=== PATIENT | female | born 1990 | race Caucasian/White ===

== ENCOUNTER → 2016-09-10 | Outpatient (CLI) | payer MEDICAID ==
[~2016-09-10] MED LIST: DCS100C PO; DOCU100C37 PO; DOXY100C2 PO; FERR-74 PO; FRS325T PO; HYDR-3714 PO; HYDR-3812 PO; IBP600T1 PO; IBP800T PO; IBUP-15; IBUP-1773 PO; LEVO50TA PO; LEVO75TA PO; METH4TAB PO; NAPR-243 PO; NF-NOR777T PO; PREN-98 PO; PRM25T PO; PROP1TAB77; TRAM50TA2 PO; TRM50T PO
--- OUTSIDE RECORDS SUMMARY | 2016-09-10 11:33 | XMS REPORT | Continuity of Care Document ---
Author Author [facility] Organization [facility] Address Unknown Phone Unavailable Care Team Providers Care Resin Shaver Name Role Phone PCP Unavailable Source Comments Some departments are not documenting in the electronic medical record. If you do not see the information that you expected, contact Release of Information in the Health Information Management department at [phone] for further assistance in locating additional records.[facility] Active Allergies and Adverse Reactions Allergen Noted Date Severity Reactions Comments Darvon 07/18/2016 Low UNKNOWN Guaifenesin 07/18/2016 Low UNKNOWN Guaifenesin with codeine Sulfamethoxazole-Trimetho 07/18/2016 Low UNKNOWN prim Current Medications Prescription Sig. Disp. Refills Start End Date Status Date levonorgestrel (MIRENA) 1 Intra Uterine Device by Active 20 mcg/24 hr (5 years) Intrauterine route once. intrauterine device fluconazole (DIFLUCAN) 50 Take 50 mg by mouth Active mg tablet daily. Active Problems Not on file Most Recent Encounters Date Type Specialty Providers Description 07/18/2016 Abstract Endocrinology Marleni Moise MD Social History Tobacco Use Types Packs/Day Years Used Date Never Smoker Smokeless Tobacco: Never Used Plan of Care Health Maintenance Due Date Last Done Comments Physical (Comprehensive) 1998 Exam Hpv Vaccines (#1) 2002 Pertussis Vaccine 2002 Tetanus Vaccine 2008 Cervical Cancer Screening 2012 Influenza Vaccine 03/14/2016 Results from Last 3 Months Not on file
--- NOTE | 2016-09-10 18:15 | Diagnostic Imaging Report ---
INDICATION: History of a low-lying placenta. FINDINGS: A egan gestation is in breech position. Cervix is nondilated at 5.6 cm. The placenta is well separable from the closed internal os at least 10 cm. IMPRESSION: No evidence of previa. Nondilated 5.6 cm in length cervix revealed at limited obstetrical ultrasound. Dictated by: Dictated on workstation # [id number]
== END ==
LOC: RAD 11:26
PROVIDERS: ATTEND Obstetrics & Gynecology
DX: O43.893 Other placental disorders, third trimester (principal)
CPT/HCPCS: 76817

== ENCOUNTER 2016-10-30 18:49 | Inpatient (IN) | payer MEDICAID ==
[2016-10-30] VITALS (18 sets, daily range): BP systolic 113–138; BP diastolic 60–75
[~2016-10-30] VITALS: Ht 167.6 cm; Wt 144.2 kg
[~2016-10-30 18:49] MED LIST changes: -DOCU100C37 PO; -FERR-74 PO; -HYDR-3812 PO; -IBUP-1773 PO; -LEVO50TA PO
[2016-10-30] MEDS ORDERED: CLINDAMYCIN 900 MG/6ML (CLEOCIN) VIAL ONE (20:06)
[2016-10-30] MEDS ORDERED: NS (IVPB) 50 ML ONE (20:29)
[2016-10-30] MEDS: D5 LR IV SOLUTION 1,000 ML IV SCH (20:34)
[2016-10-30 20:39] LABS: BASOPHILS % (AUTO) 0 % (0-10); EOSINOPHILS # (AUTO) 0.1 10^3/uL (0.0-0.3); EOSINOPHILS % (AUTO) 1 % (0-10); LYMPHOCYTES # (AUTO) 1.8 X 10^3 (1.0-4.0); LYMPHOCYTES % (AUTO) 16 % (12-44); MEAN CORPUSCULAR HEMOGLOBIN 25 PG (25-34); MEAN CORPUSCULAR HGB CONC 32 G/DL (32-36); MEAN CORPUSCULAR VOLUME 76 FL (80-99); MEAN PLATELET VOLUME 11.8 FL (7.4-10.4); MONOCYTES # (AUTO) 0.9 X 10^3 (0.0-1.0); MONOCYTES % (AUTO) 8 % (0-12); NEUTROPHILS # (AUTO) 8.7 X 10^3 (1.8-7.8); NEUTROPHILS % (AUTO) 76 % (42-75); PLATELET COUNT 211 10^3/uL (130-400); RED BLOOD COUNT 5.22 10^6/uL (4.35-5.85); RED CELL DISTRIBUTION WIDTH 16.9 % (10.0-14.5); WHITE BLOOD COUNT 11.5 10^3/uL (4.3-11.0)
[2016-10-30] MEDS ORDERED: SUFENTA 0.6MCG/ML BUPIVA 0.125 100 ML ONE (21:14)
[2016-10-30] MEDS ORDERED: BUPIVACAINE 0.25% 30 ML (SENSORCAINE) VIAL ONE (21:50)
[2016-10-30] MEDS ORDERED: LIDOCAINE PF 2% 10 ML (XYLOCAINE) AMP ONE (21:50)
[2016-10-30] MEDS ORDERED: fentaNYL INJECTION 100 MCG/2 ML AMP ONE (21:51)
[2016-10-30] MEDS ORDERED: LACTATED RINGERS 1,000 ML IV SCH (22:02)
[2016-10-30] MEDS ORDERED: NALOXONE 0.4 MG/ML 1 ML (NARCAN) VIAL IV PRN (22:15)
[2016-10-30] MEDS ORDERED: ONDANSETRON 4 MG/2 ML (SDV) Z0FRAN IV PRN (22:15)
[2016-10-30] MEDS ORDERED: diphenhydrAMINE 50 MG/ML INJ (BENADRYL) IV PRN (22:15)
[2016-10-30] MEDS: CATHETER FLUSH 10 ML SYR IV SCH (22:26)
[2016-10-30] MEDS: EPIDURAL (SUFENTA 0.6MCG/ML BUPIVA 0.125%) 100 ML BAG EPI PRN (22:27)
[2016-10-30] MEDS ORDERED: LEVO50TA PO (22:38)
[2016-10-31] VITALS (62 sets, daily range): BP systolic 101–146; BP diastolic 55–85
[2016-10-31] MEDS: D5 LR IV SOLUTION 1,000 ML IV SCH ×2 (03:27→11:59)
[2016-10-31] MEDS: CLINDAMYCIN INJECTION 900 MG in NS (IVPB) 50 ML IV SCH ×2 (04:31→11:58)
[2016-10-31] MEDS: EPIDURAL (SUFENTA 0.6MCG/ML BUPIVA 0.125%) 100 ML BAG EPI PRN (05:36)
[2016-10-31] MEDS: CATHETER FLUSH 10 ML SYR IV SCH (05:57)
--- NOTE | 2016-10-31 10:08 | History & Physical-OB ---
OB - Chief Complaint & HPI Date Date of Admission: Date of Admission: Oct 30, 2016 at 7:58 pm Chief Complaint/History OB-Reason for Admission/Chief: Onset of Labor Hx : 3 Hx Para: 2 Expected Date of Delivery: Nov 05, 2016 Gestational Age in Weeks: 39 Gestational Age in Days: 2 Admission Nurse Assessment Rev: Yes History of Labs A pos Antibody neg RI RPR NR HBsAg NR HIV NR GC neg GBS + Allergies and Home Medications Allergies Coded Allergies: Penicillins (Verified Allergy, Mild, 10/30/16) Sulfa (Sulfonamide Antibiotics) (Verified Allergy, Mild, 10/30/16) codeine (Verified Allergy, Mild, 10/30/16) shellfish derived (Verified Allergy, Unknown, 10/31/16) Uncoded Allergies: DARVOCET (Allergy, Mild, HIVES, 03/22/10) Home Medications Levothyroxine Sodium 50 Mcg Tablet, 50 MCG PO DAILY, (Reported) Vit37/Iron/Folic Acid 1 Each Tab.chew, 1 EACH PO DAILY, (Reported) OB - History Hx of Present Care: Yes Ultrasounds: Abnormal US findings (placenta previa which resolved) Obstetrical Complications: None Medical Complications: Other (BMI >45) Obstetrical History Hx Termination: No Hx Multiple Gestation: No Hx Stillbirth: No Hx Complication: No Hx Induced Hypertens: No Hx Maternal Gestational Diabet: No Delivery History Hx Dystocia: No Hx Large For Gestational Age I: No Hx Small for Gestational Age I: No Hx Section: No Hx Vaginal Delivery Post C-Sec: No Hx Blood Disorders: No Adverse Rxn to Tranfusion: No Patient Past Medical History Morbid Obesity Social History/Family History HIV/AIDS: No Recent Infectious Disease Expo: No Sexually Transmitted Disease: No Alcohol Use: Denies Use Recreational Drug Use: No Immunizations Tetanus Booster (TDap): Unknown OB - Admission Exam Physical Exam Vitals: Vital Signs 10/31/16 10/31/16 08:05 09:35 Temp 95.6 Pulse 85 Resp 18 B/P (MAP) 118/80 Pulse Ox 96 O2 Delivery Room Air HEENT: NCAT Heart: Rhythm Normal Lungs: Clear Abdomen: Gravid Extremities: Normal Reflexes: Normal Cervical Dilatation: 4cm Effacement: 75% Station: -1 Membranes: Intact Heart Rate: 130's Accelerations: Accelerations Present Decelerations: No Decelerations Short Term Variability: Present Nursing Home Variability: Absent (0-2) Contractions on Admission: 6-10 Minutes Apart Intensity: Moderate Labs Laboratory Tests Test 10/30/16 20:15 Range/Units White Blood Count 11.5 H 4.3-11.0 10^3/uL Red Blood Count 5.22 4.35-5.85 10^6/uL Hemoglobin 12.8 11.5-16.0 G/DL Hematocrit 40 35-52 % Mean Corpuscular Volume 76 L 80-99 FL Mean Corpuscular Hemoglobin 25 25-34 PG Mean Corpuscular Hemoglobin Concent 32 32-36 G/DL Red Cell Distribution Width 16.9 H 10.0-14.5 % Platelet Count 211 130-400 10^3/uL Mean Platelet Volume 11.8 H 7.4-10.4 FL Neutrophils (%) (Auto) 76 H 42-75 % Lymphocytes (%) (Auto) 16 12-44 % Monocytes (%) (Auto) 8 0-12 % Eosinophils (%) (Auto) 1 0-10 % Basophils (%) (Auto) 0 0-10 % Neutrophils # (Auto) 8.7 H 1.8-7.8 X 10^3 Lymphocytes # (Auto) 1.8 1.0-4.0 X 10^3 Monocytes # (Auto) 0.9 0.0-1.0 X 10^3 Eosinophils # (Auto) 0.1 0.0-0.3 10^3/uL Basophils # (Auto) 0.0 0.0-0.1 10^3/uL OB - Assessment/Plan/Diagnosis Assessment Assessment: active labor, group B positive strep Plan Plan: Expectant Management Discharge Diagnosis Diagnosis: 26 yo G3 P 2 @ 39.2 Active labor GBS + Obesity CATHY NICOLAS DO Oct 31, 2016 10:08 am
[2016-10-31] MEDS ORDERED: LIDOCAINE/EPI 1%-1:200,000 (XYLOCAINE) 30 ML VIAL ONE (12:53)
[2016-10-31] MEDS ORDERED: OXYTOCIN/NORMAL SALINE 500 ML IV ONE (12:53)
[2016-10-31] MEDS: OXYTOCIN/NORMAL SALINE 500 ML IV SCH ×2 (13:06→14:03)
--- NOTE | 2016-10-31 13:25 | OB Labor & Delivery Record ---
L&D History Date of Service Date of Service: Oct 31, 2016 History Expected Date of Delivery: Nov 05, 2016 Gestational Age in Weeks: 39 Hx : 3 Hx Para: 2 Complications Events: Routine care Operative Indications (Cesarea: N/A-Vaginal Delivery Intrapartal Events: None L&D Stage1 Stage One Onset of Labor - Date: Oct 31, 2016 Monitors and Tracing Monitor Mode: External Heart Rate: 125 Station: -1 Retirement Variability: Average (6-10) Short Term Variability: Present Presentation: Vertex Vital Signs VS - Last 72 Hours, by Label 10/30/16 10/30/16 10/30/16 10/30/16 19:20 21:30 21:50 22:07 Temp 97.6 Pulse 98 93 101 95 Resp 18 18 18 18 B/P (MAP) 122/67 119/69 133/74 136/71 Pulse Ox 99 98 O2 Delivery Room Air Room Air Room Air Room Air 10/30/16 10/30/16 10/30/16 10/30/16 22:10 22:13 22:15 22:20 Temp 97.8 Pulse 97 93 99 95 Resp 18 18 18 18 B/P (MAP) 138/71 125/66 128/75 120/63 Pulse Ox 97 96 97 98 O2 Delivery Room Air Room Air Room Air Room Air 10/30/16 10/30/16 10/30/16 10/30/16 22:23 22:26 22:30 22:38 Pulse 90 91 94 101 Resp 18 18 18 18 B/P (MAP) 113/65 115/67 117/71 124/60 Pulse Ox 94 98 97 98 O2 Delivery Room Air Room Air Room Air Room Air 10/30/16 10/30/16 10/30/16 10/30/16 22:41 22:46 23:05 23:20 Pulse 86 102 99 96 Resp 18 18 18 18 B/P (MAP) 131/69 124/65 115/68 117/68 Pulse Ox 97 98 97 97 O2 Delivery Room Air Room Air Room Air Room Air 10/30/16 10/30/16 10/31/16 10/31/16 23:35 23:50 00:05 00:20 Pulse 94 96 86 86 Resp 18 18 18 18 B/P (MAP) 117/66 121/67 126/70 126/71 Pulse Ox 97 97 96 97 O2 Delivery Room Air Room Air Room Air Room Air 10/31/16 10/31/16 10/31/16 10/31/16 00:35 00:50 01:05 01:20 Temp 97.4 Pulse 84 82 82 85 Resp 18 18 18 18 B/P (MAP) 124/69 119/66 115/72 101/56 Pulse Ox 97 94 98 99 O2 Delivery Room Air Room Air Room Air Room Air 10/31/16 10/31/16 10/31/16 10/31/16 01:35 01:50 02:05 02:20 Pulse 84 102 83 82 Resp 18 18 18 18 B/P (MAP) 104/55 127/59 107/55 111/55 Pulse Ox 94 97 98 92 O2 Delivery Room Air Room Air Room Air Room Air 10/31/16 10/31/16 10/31/16 10/31/16 02:35 02:50 03:05 03:20 Temp 96.6 Pulse 82 84 115 97 Resp 18 18 18 18 B/P (MAP) 106/58 115/62 121/61 120/69 Pulse Ox 96 93 98 95 O2 Delivery Room Air Room Air Room Air Room Air 10/31/16 10/31/16 10/31/16 10/31/16 03:35 03:50 04:05 04:20 Pulse 96 97 96 90 Resp 18 18 18 18 B/P (MAP) 122/74 125/67 114/70 119/76 Pulse Ox 96 97 93 96 O2 Delivery Room Air Room Air Room Air Room Air 10/31/16 10/31/16 10/31/16 10/31/16 04:35 04:50 05:05 05:20 Pulse 78 84 88 88 Resp 18 18 18 18 B/P (MAP) 121/77 122/77 124/73 122/78 Pulse Ox 95 95 96 95 O2 Delivery Room Air Room Air Room Air Room Air 10/31/16 10/31/16 10/31/16 10/31/16 05:35 05:50 06:05 06:20 Pulse 98 83 88 95 Resp 18 18 18 18 B/P (MAP) 120/74 116/75 130/79 123/77 Pulse Ox 95 95 95 96 O2 Delivery Room Air Room Air Room Air Room Air 10/31/16 10/31/16 10/31/16 10/31/16 06:35 06:50 07:05 07:20 Pulse 77 81 96 101 Resp 18 18 18 18 B/P (MAP) 114/74 122/71 115/74 119/72 Pulse Ox 95 96 96 96 O2 Delivery Room Air Room Air Room Air Room Air 10/31/16 10/31/16 10/31/16 10/31/16 07:35 07:50 08:05 08:20 Temp 95.6 Pulse 93 93 78 88 Resp 18 18 18 18 B/P (MAP) 116/65 116/65 134/69 129/77 Pulse Ox 96 96 95 96 O2 Delivery Room Air Room Air Room Air Room Air 10/31/16 10/31/16 10/31/16 10/31/16 08:35 08:50 09:05 09:20 Pulse 90 90 96 96 Resp 18 18 18 18 B/P (MAP) 125/72 116/69 120/71 120/71 Pulse Ox 96 96 98 98 O2 Delivery Room Air Room Air Room Air Room Air 10/31/16 10/31/16 10/31/16 10/31/16 09:35 09:50 10:05 10:20 Pulse 85 76 81 91 Resp 18 18 18 18 B/P (MAP) 118/80 126/78 131/77 120/74 Pulse Ox 96 97 96 96 O2 Delivery Room Air Room Air Room Air Room Air 10/31/16 10/31/16 10:35 10:50 Pulse 90 102 Resp 18 18 B/P (MAP) 122/79 113/70 Pulse Ox 96 96 O2 Delivery Room Air Room Air Rupture of Membranes Spontaneous Ruture of Membrane: Yes Amniotic Membrane Rupture Time: 0644 Amniotic Membrane Fluid Desc.: Clear Vaginal Bleeding Description: Normal Show Induction/Anesthesia Epidural Cath Placement - Time: 2210 L&D Stage2 Monitors and Tracing Monitor Mode: External Heart Rate: 125 Monitor Accelerations: None Monitor Decelerations: Variable [employer]oving Machine Operator Variability: Average (6-10) Short Term Variability: Present Position: Right Occiput Anterior Presentation: Vertex Cord Descript/Complications Cord Vessel Description: 3 Vessels Delivery Type Delivery Method: Spontaneous Vaginal Anterior Shoulder: Right Episiotomy/Perineal Laceration Laceraction(s)/Extensions: No Condition of Delivery 1 minute Comment: 9 5 minute Comment: 9 Notes live female 8lbs 12 oz Condition of Infant Condition of : Living Exam: No Observed Abnormalities Resuscitation Resuscitation: N/A - Spontaneous Resp L&D Stage3 Stage Three Stage III Date: Oct 31, 2016 Pictocin Pitocin Administration Comment: 30 mu at delivery of placenta Placenta Delivery Placenta Delivery: Spontaneous Delivery Summary Summary blood loss >1000ml: No Vaginal blood loss >500ml: No 250 Attending at delivery: Cathy Nicolas DO Condition of Delivery Examined: Cervix Examined, Uterus Explored Post Hemorrhage: No Condition of Mother stable Condition of (s) stable CTAHY NICOLAS DO Oct 31, 2016 1:25 pm
[2016-10-31] MEDS ORDERED: DOCU100C37 PO (13:27)
[2016-10-31] MEDS ORDERED: IBUP-1773 PO (13:27)
[2016-10-31] MEDS ORDERED: FERR-74 PO (13:27)
--- NOTE | 2016-10-31 13:27 | Discharge Inst-Women's Service ---
Discharge Inst-Women's Serv Depart Medication/Instructions New, Converted or Re-Newed RX: RX on Chart Consults/Follow Up Additional Follow Up: Yes Orders/Referrals Dr. Nicolas in 6 weeks Activity Activity: Activity as Tolerated Driving Instructions: No Driving for 1 Week NO SMOKING: NO SMOKING Nothing Inside Vagina: No Douching, No Winfred, No Tampons Diet Discharge Diet: No Restrictions Symptoms to Report to : Bleeding Excessive, Pain Increased, Fever Over 101 Degrees F, Vaginal Bleeding Increase, Questions/Concerns For Any Problems or Questions: Contact Your Physician Skin/Wound Care Bathing Instructions: Shower (x 2 weeks) CATHY NICOLAS DO Oct 31, 2016 1:27 pm
[2016-10-31] MEDS ORDERED: BENZOCAINE/MENTHOL (DERMOPLAST) 56 ML CAN TP PRN (13:30)
[2016-10-31] MEDS ORDERED: MEASLES,MUMPS,RUBELLA 1 EA INJ SQ ONE (13:30)
[2016-10-31] MEDS ORDERED: DIBUCAINE (NUPERCAINAL) 1% OINT 30 GM TOP PRN (13:30)
[2016-10-31] MEDS ORDERED: TETANUS,DIPTH,PERTUSS P/F (BOOSTRIX) 0.5 ML VIAL IM ONE (13:30)
[2016-10-31] MEDS ORDERED: WITCH HAZEL(TUCKS) 40 EA JAR TOP PRN (13:30)
[2016-10-31] MEDS ORDERED: CATHETER FLUSH 10 ML SYR IV SCH (14:00)
[2016-10-31] MEDS: IBUPROFEN 600 MG (MOTRIN) TAB PO SCH (18:35)
[2016-11-01] VITALS (7 sets, daily range): BP systolic 115–129; BP diastolic 67–82
[2016-11-01] MEDS: DOCUSATE SODIUM 100 MG (COLACE) CAP PO SCH ×3 (00:14→21:04)
[2016-11-01] MEDS: IBUPROFEN 600 MG (MOTRIN) TAB PO SCH ×5 (00:14→22:56)
[2016-11-01] MEDS: PRENATAL VITAMIN 1 EA TAB PO SCH (06:04)
[2016-11-01 06:22] LABS: BASOPHILS % (AUTO) 0 % (0-10); EOSINOPHILS # (AUTO) 0.1 10^3/uL (0.0-0.3); EOSINOPHILS % (AUTO) 1 % (0-10); LYMPHOCYTES # (AUTO) 1.9 X 10^3 (1.0-4.0); LYMPHOCYTES % (AUTO) 21 % (12-44); MEAN CORPUSCULAR HEMOGLOBIN 24 PG (25-34); MEAN CORPUSCULAR HGB CONC 32 G/DL (32-36); MEAN CORPUSCULAR VOLUME 77 FL (80-99); MEAN PLATELET VOLUME 11.4 FL (7.4-10.4); MONOCYTES % (AUTO) 10 % (0-12); NEUTROPHILS # (AUTO) 6.3 X 10^3 (1.8-7.8); NEUTROPHILS % (AUTO) 68 % (42-75); PLATELET COUNT 152 10^3/uL (130-400); RED BLOOD COUNT 4.57 10^6/uL (4.35-5.85); RED CELL DISTRIBUTION WIDTH 16.8 % (10.0-14.5); WHITE BLOOD COUNT 9.3 10^3/uL (4.3-11.0)
[2016-11-01] MEDS: LEVOTHYROXINE 50 MCG (LEVOTHROID) TAB PO SCH (08:03)
[2016-11-01] MEDS: FERROUS SULF 325 MG (IRON) TAB PO SCH (08:04)
--- NOTE | 2016-11-01 08:39 | Postpartum Progress Note ---
Note Note Day # 1 Subjective: Patient is without complaints. Ambulating, voiding. Tolerating a regular diet without nausea or vomiting. Normal lochia. Pain is well controlled with oral pain medications. Breast feeding. Wants to d/c home. Objective: VS - Last 72 Hours, by Label 10/30/16 10/30/16 10/30/16 10/30/16 19:20 21:30 21:50 22:07 Temp 97.6 Pulse 98 93 101 95 Resp 18 18 18 18 B/P (MAP) 122/67 119/69 133/74 136/71 Pulse Ox 99 98 O2 Delivery Room Air Room Air Room Air Room Air 10/30/16 10/30/16 10/30/16 10/30/16 22:10 22:13 22:15 22:20 Temp 97.8 Pulse 97 93 99 95 Resp 18 18 18 18 B/P (MAP) 138/71 125/66 128/75 120/63 Pulse Ox 97 96 97 98 O2 Delivery Room Air Room Air Room Air Room Air 10/30/16 10/30/16 10/30/16 10/30/16 22:23 22:26 22:30 22:38 Pulse 90 91 94 101 Resp 18 18 18 18 B/P (MAP) 113/65 115/67 117/71 124/60 Pulse Ox 94 98 97 98 O2 Delivery Room Air Room Air Room Air Room Air 10/30/16 10/30/16 10/30/16 10/30/16 22:41 22:46 23:05 23:20 Pulse 86 102 99 96 Resp 18 18 18 18 B/P (MAP) 131/69 124/65 115/68 117/68 Pulse Ox 97 98 97 97 O2 Delivery Room Air Room Air Room Air Room Air 10/30/16 10/30/16 10/31/16 10/31/16 23:35 23:50 00:05 00:20 Pulse 94 96 86 86 Resp 18 18 18 18 B/P (MAP) 117/66 121/67 126/70 126/71 Pulse Ox 97 97 96 97 O2 Delivery Room Air Room Air Room Air Room Air 10/31/16 10/31/16 10/31/16 10/31/16 00:35 00:50 01:05 01:20 Temp 97.4 Pulse 84 82 82 85 Resp 18 18 18 18 B/P (MAP) 124/69 119/66 115/72 101/56 Pulse Ox 97 94 98 99 O2 Delivery Room Air Room Air Room Air Room Air 10/31/16 10/31/16 10/31/16 10/31/16 01:35 01:50 02:05 02:20 Pulse 84 102 83 82 Resp 18 18 18 18 B/P (MAP) 104/55 127/59 107/55 111/55 Pulse Ox 94 97 98 92 O2 Delivery Room Air Room Air Room Air Room Air 10/31/16 10/31/16 10/31/16 10/31/16 02:35 02:50 03:05 03:20 Temp 96.6 Pulse 82 84 115 97 Resp 18 18 18 18 B/P (MAP) 106/58 115/62 121/61 120/69 Pulse Ox 96 93 98 95 O2 Delivery Room Air Room Air Room Air Room Air 10/31/16 10/31/16 10/31/16 10/31/16 03:35 03:50 04:05 04:20 Pulse 96 97 96 90 Resp 18 18 18 18 B/P (MAP) 122/74 125/67 114/70 119/76 Pulse Ox 96 97 93 96 O2 Delivery Room Air Room Air Room Air Room Air 10/31/16 10/31/16 10/31/16 10/31/16 04:35 04:50 05:05 05:20 Pulse 78 84 88 88 Resp 18 18 18 18 B/P (MAP) 121/77 122/77 124/73 122/78 Pulse Ox 95 95 96 95 O2 Delivery Room Air Room Air Room Air Room Air 10/31/16 10/31/16 10/31/16 10/31/16 05:35 05:50 06:05 06:20 Pulse 98 83 88 95 Resp 18 18 18 18 B/P (MAP) 120/74 116/75 130/79 123/77 Pulse Ox 95 95 95 96 O2 Delivery Room Air Room Air Room Air Room Air 10/31/16 10/31/16 10/31/16 10/31/16 06:35 06:50 07:05 07:20 Pulse 77 81 96 101 Resp 18 18 18 18 B/P (MAP) 114/74 122/71 115/74 119/72 Pulse Ox 95 96 96 96 O2 Delivery Room Air Room Air Room Air Room Air 10/31/16 10/31/16 10/31/16 4/20/17 07:35 07:50 08:05 08:20 Temp 95.6 Pulse 93 93 78 88 Resp 18 18 18 18 B/P (MAP) 116/65 116/65 134/69 129/77 Pulse Ox 96 96 95 96 O2 Delivery Room Air Room Air Room Air Room Air 10/31/16 10/31/16 10/31/16 10/31/16 08:35 08:50 09:05 09:20 Pulse 90 90 96 96 Resp 18 18 18 18 B/P (MAP) 125/72 116/69 120/71 120/71 Pulse Ox 96 96 98 98 O2 Delivery Room Air Room Air Room Air Room Air 10/31/16 10/31/16 10/31/16 10/31/16 09:35 09:50 10:05 10:20 Pulse 85 76 81 91 Resp 18 18 18 18 B/P (MAP) 118/80 126/78 131/77 120/74 Pulse Ox 96 97 96 96 O2 Delivery Room Air Room Air Room Air Room Air 10/31/16 10/31/16 10/31/16 10/31/16 10:35 10:50 11:05 11:20 Pulse 90 102 100 97 Resp 18 18 18 18 B/P (MAP) 122/79 113/70 146/83 142/78 Pulse Ox 96 96 97 97 O2 Delivery Room Air Room Air Room Air Room Air 10/31/16 10/31/16 10/31/16 10/31/16 11:35 11:50 12:05 12:20 Temp 95.5 Pulse 110 104 87 96 Resp 18 18 18 18 B/P (MAP) 130/81 132/84 134/80 129/76 Pulse Ox 98 97 96 96 O2 Delivery Room Air Room Air Room Air Room Air 10/31/16 10/31/16 10/31/16 10/31/16 12:35 12:50 13:20 13:35 Pulse 86 93 93 95 Resp 18 18 18 18 B/P (MAP) 132/76 131/85 119/71 130/74 Pulse Ox 93 98 O2 Delivery Room Air Room Air Room Air Room Air 10/31/16 10/31/16 10/31/16 10/31/16 13:45 14:00 14:15 14:30 Pulse 93 83 80 80 Resp 18 18 18 18 B/P (MAP) 120/62 112/56 115/58 119/58 O2 Delivery Room Air Room Air Room Air Room Air 10/31/16 10/31/16 10/31/16 10/31/16 14:45 15:00 18:35 20:00 Temp 96.5 96.9 Pulse 77 82 77 83 Resp 18 18 18 17 B/P (MAP) 124/62 122/64 109/66 123/78 Pulse Ox 95 98 O2 Delivery Room Air Room Air Room Air Room Air 11/01/16 11/01/16 11/01/16 00:06 04:00 08:00 Temp 98.7 96.7 98.0 Pulse 80 70 74 Resp 17 16 18 B/P (MAP) 129/82 124/81 124/67 Pulse Ox 99 99 99 O2 Delivery Room Air Room Air Room Air Physical Exam: General - Alert and oriented, no apparent distress Abdomen - Soft, appropriately tender to palpation, non-distended, fundus firm at umbilicus Extremities - no edema, negative Kim's bilaterally Laboratory Tests Test 11/01/16 06:04 Range/Units White Blood Count 9.3 4.3-11.0 10^3/uL Red Blood Count 4.57 4.35-5.85 10^6/uL Hemoglobin 11.1 L 11.5-16.0 G/DL Hematocrit 35 35-52 % Mean Corpuscular Volume 77 L 80-99 FL Mean Corpuscular Hemoglobin 24 L 25-34 PG Mean Corpuscular Hemoglobin Concent 32 32-36 G/DL Red Cell Distribution Width 16.8 H 10.0-14.5 % Platelet Count 152 130-400 10^3/uL Mean Platelet Volume 11.4 H 7.4-10.4 FL Neutrophils (%) (Auto) 68 42-75 % Lymphocytes (%) (Auto) 21 12-44 % Monocytes (%) (Auto) 10 0-12 % Eosinophils (%) (Auto) 1 0-10 % Basophils (%) (Auto) 0 0-10 % Neutrophils # (Auto) 6.3 1.8-7.8 X 10^3 Lymphocytes # (Auto) 1.9 1.0-4.0 X 10^3 Monocytes # (Auto) 1.0 0.0-1.0 X 10^3 Eosinophils # (Auto) 0.1 0.0-0.3 10^3/uL Basophils # (Auto) 0.0 0.0-0.1 10^3/uL Assessment: 26 y/o post- day # 1, status post spontaneous vaginal delivery. Recovering well, hemodynamically stable Hgb 11.1 Rh+ Plan: Routine care. Encourage breast feeding. Encourage ambulation. Plan for discharge today, f/u as per Dr. Michel's discharge instructions. Vitals - Labs Vital Signs - I&O Vital Signs Date Time Temp Pulse Resp B/P (MAP) Pulse Ox O2 Delivery O2 Flow Rate FiO2 11/01/16 08:00 98.0 74 18 124/67 99 Room Air 11/01/16 04:00 96.7 70 16 124/81 99 Room Air 11/01/16 00:06 98.7 80 17 129/82 99 Room Air 10/31/16 20:00 96.9 83 17 123/78 98 Room Air 10/31/16 18:35 96.5 77 18 109/66 95 Room Air 10/31/16 15:00 82 18 122/64 Room Air 10/31/16 14:45 77 18 124/62 Room Air 10/31/16 14:30 80 18 119/58 Room Air 10/31/16 14:15 80 18 115/58 Room Air 10/31/16 14:00 83 18 112/56 Room Air 10/31/16 13:45 93 18 120/62 Room Air 10/31/16 13:35 95 18 130/74 Room Air 10/31/16 13:20 93 18 119/71 Room Air 10/31/16 12:50 93 18 131/85 98 Room Air 10/31/16 12:35 86 18 132/76 93 Room Air 10/31/16 12:20 96 18 129/76 96 Room Air 10/31/16 12:05 95.5 87 18 134/80 96 Room Air 10/31/16 11:50 104 18 132/84 97 Room Air 10/31/16 11:35 110 18 130/81 98 Room Air 10/31/16 11:20 97 18 142/78 97 Room Air 10/31/16 11:05 100 18 146/83 97 Room Air 10/31/16 10:50 102 18 113/70 96 Room Air 4/20/17 10:35 90 18 122/79 96 Room Air 10/31/16 10:20 91 18 120/74 96 Room Air 10/31/16 10:05 81 18 131/77 96 Room Air 10/31/16 09:50 76 18 126/78 97 Room Air 10/31/16 09:35 85 18 118/80 96 Room Air 10/31/16 09:20 96 18 120/71 98 Room Air 10/31/16 09:05 96 18 120/71 98 Room Air 10/31/16 08:50 90 18 116/69 96 Room Air I & O 11/01/16 07:00 Intake Total 900 ml Balance 900 ml Labs Laboratory Tests 11/01/16 06:04: White Blood Count 9.3, Red Blood Count 4.57, Hemoglobin 11.1L, Hematocrit 35, Mean Corpuscular Volume 77L, Mean Corpuscular Hemoglobin 24L, Mean Corpuscular Hemoglobin Concent 32, Red Cell Distribution Width 16.8H, Platelet Count 152, Mean Platelet Volume 11.4H, Neutrophils (%) (Auto) 68, Lymphocytes (%) (Auto) 21 , Monocytes (%) (Auto) 10, Eosinophils (%) (Auto) 1, Basophils (%) (Auto) 0, Neutrophils # (Auto) 6.3, Lymphocytes # (Auto) 1.9, Monocytes # (Auto) 1.0, Eosinophils # (Auto) 0.1, Basophils # (Auto) 0.0 JIGNA FERNÁNDEZ MD Nov 01, 2016 08:39
[2016-11-01] MEDS ORDERED: DOCUSATE CALCIUM 240 MG (SURFAK) CAP PO SCH (09:00)
[2016-11-01] MEDS: D5 LR IV SOLUTION 1,000 ML IV SCH ×2 (12:16→15:47)
--- NOTE | 2016-11-01 13:51 | Progress Note-Standard ---
Standard Progress Note Progress Notes/Assess & Plan Date Seen 11/01/16 Assess & Plan/Chief Complaint PPD#1 Called to evaluate pt by RN this afternoon Pt reports she had numbness of the right buttock following delivery, attributed to epidural However started to have pain in the right buttock. Has been unable to sit on it. Has been slowly worsening. Using motrin for pain. No fevers/chills. No pain in the vagina/vulva. Gen: Mild distress, laying on side Vulva/vagina - no active bleeding, no evidence of hematoma Right buttock - 12x12 firm area noted over superior right buttock, moderately ttp, extends nearly to gluteal fold, does not appear to cross midline. Erythema noted over medial aspect but not erythematous throughout A/P: 26 y/o PPD#1 after Likely hematoma - questionably expanding. Will obtain CBC to compare with this AM and CT to r/o intraperitoneal bleed and evaluate for hematoma. If hemodynamically stable and no active bleeding on CT, will plan conservative management with ice and pressure, as well as narcotic analgesia. If any evidence of infection, will add antbx. RN asked to perform vitals hourly until reassured no active hemorrhage is occurring. Plan discussed at length with pt who agrees. Labs Laboratory Tests 10/30/16 20:15 11/01/16 06:04 JIGNA FERNÁNDEZ MD Nov 01, 2016 13:51
--- NOTE | 2016-11-01 14:28 | Diagnostic Imaging Report ---
PROCEDURE: CT abdomen and pelvis without contrast. TECHNIQUE: Multiple contiguous axial images were obtained through the abdomen and pelvis without the use of intravenous contrast. INDICATION: Post delivery with bump on buttock. There is some subcutaneous edema noted along the upper portion of the buttock extending more prominently on the right than left. There is not a focal fluid collection to indicate a true hematoma. The gluteal muscles appear normal. The uterus is enlarged consistent with recent state. No free fluid in the abdomen. No masses are present. Bowel gas pattern is normal. The liver appears normal as do the gallbladder and bile ducts. Pancreas and spleen are normal. Adrenal glands and kidneys are normal. IMPRESSION: 1. Subcutaneous-appearing edema along the upper buttocks extending more to the right with no evidence of a focal hematoma noted. 2. enlarged uterus. Dictated by: Dictated on workstation # [id number]
[2016-11-01] MEDS: HYDROcodone/APAP 5 MG/325 MG (LORTAB) TAB PO PRN ×2 (14:37→21:04)
--- NOTE | 2016-11-01 14:43 | Anesthesia-Regional Post-Op ---
Regional Patient Condition Mental Status: Alert, Oriented x3 Circulation: Same as Pre-Op Headache: Absent Sensation: Full Recovery Motor Block: Absent Post Op Complications Complications None Follow Up Care/Instructions Patient Instructions None needed. Anesthesia/Patient Condition Patient is doing well, no complaints, stable vital signs, no apparent adverse anesthesia problems. No complications reported per nursing. ASAD AVALOS CRNA Nov 01, 2016 14:43
[2016-11-01 23:04] LABS: BASOPHILS % (AUTO) 0 % (0-10); EOSINOPHILS # (AUTO) 0.2 10^3/uL (0.0-0.3); EOSINOPHILS % (AUTO) 2 % (0-10); LYMPHOCYTES # (AUTO) 2.3 X 10^3 (1.0-4.0); LYMPHOCYTES % (AUTO) 20 % (12-44); MEAN CORPUSCULAR HEMOGLOBIN 24 PG (25-34); MEAN CORPUSCULAR HGB CONC 32 G/DL (32-36); MEAN CORPUSCULAR VOLUME 77 FL (80-99); MEAN PLATELET VOLUME 10.8 FL (7.4-10.4); MONOCYTES % (AUTO) 9 % (0-12); NEUTROPHILS # (AUTO) 7.8 X 10^3 (1.8-7.8); NEUTROPHILS % (AUTO) 69 % (42-75); PLATELET COUNT 198 10^3/uL (130-400); RED BLOOD COUNT 4.75 10^6/uL (4.35-5.85); RED CELL DISTRIBUTION WIDTH 16.9 % (10.0-14.5); WHITE BLOOD COUNT 11.3 10^3/uL (4.3-11.0)
[2016-11-02] VITALS: BP 115/82
[2016-11-02] MEDS: LEVOTHYROXINE 50 MCG (LEVOTHROID) TAB PO SCH (05:49)
[2016-11-02] MEDS: IBUPROFEN 600 MG (MOTRIN) TAB PO SCH ×2 (05:49→11:47)
[2016-11-02] MEDS: HYDROcodone/APAP 5 MG/325 MG (LORTAB) TAB PO PRN (05:51)
[2016-11-02 08:00] VITALS: BP 95/52
[2016-11-02] MEDS ORDERED: HYDR-3812 PO (08:22)
--- NOTE | 2016-11-02 08:27 | Postpartum Progress Note ---
Note Note Day # 2 Subjective: Patient is without complaints other than continued right buttock pain which is improved . Ambulating, voiding. Tolerating a regular diet without nausea or vomiting. Normal lochia. Pain is well controlled with oral pain medications. Breast feeding. Objective: VS - Last 72 Hours, by Label 10/30/16 10/30/16 10/30/16 10/30/16 19:20 21:30 21:50 22:07 Temp 97.6 Pulse 98 93 101 95 Resp 18 18 18 18 B/P (MAP) 122/67 119/69 133/74 136/71 Pulse Ox 99 98 O2 Delivery Room Air Room Air Room Air Room Air 10/30/16 10/30/16 10/30/16 10/30/16 22:10 22:13 22:15 22:20 Temp 97.8 Pulse 97 93 99 95 Resp 18 18 18 18 B/P (MAP) 138/71 125/66 128/75 120/63 Pulse Ox 97 96 97 98 O2 Delivery Room Air Room Air Room Air Room Air 10/30/16 10/30/16 10/30/16 10/30/16 22:23 22:26 22:30 22:38 Pulse 90 91 94 101 Resp 18 18 18 18 B/P (MAP) 113/65 115/67 117/71 124/60 Pulse Ox 94 98 97 98 O2 Delivery Room Air Room Air Room Air Room Air 10/30/16 10/30/16 10/30/16 10/30/16 22:41 22:46 23:05 23:20 Pulse 86 102 99 96 Resp 18 18 18 18 B/P (MAP) 131/69 124/65 115/68 117/68 Pulse Ox 97 98 97 97 O2 Delivery Room Air Room Air Room Air Room Air 10/30/16 10/30/16 10/31/16 10/31/16 23:35 23:50 00:05 00:20 Pulse 94 96 86 86 Resp 18 18 18 18 B/P (MAP) 117/66 121/67 126/70 126/71 Pulse Ox 97 97 96 97 O2 Delivery Room Air Room Air Room Air Room Air 10/31/16 10/31/16 10/31/16 10/31/16 00:35 00:50 01:05 01:20 Temp 97.4 Pulse 84 82 82 85 Resp 18 18 18 18 B/P (MAP) 124/69 119/66 115/72 101/56 Pulse Ox 97 94 98 99 O2 Delivery Room Air Room Air Room Air Room Air 10/31/16 10/31/16 10/31/16 10/31/16 01:35 01:50 02:05 02:20 Pulse 84 102 83 82 Resp 18 18 18 18 B/P (MAP) 104/55 127/59 107/55 111/55 Pulse Ox 94 97 98 92 O2 Delivery Room Air Room Air Room Air Room Air 10/31/16 10/31/16 10/31/16 10/31/16 02:35 02:50 03:05 03:20 Temp 96.6 Pulse 82 84 115 97 Resp 18 18 18 18 B/P (MAP) 106/58 115/62 121/61 120/69 Pulse Ox 96 93 98 95 O2 Delivery Room Air Room Air Room Air Room Air 10/31/16 10/31/16 10/31/16 10/31/16 03:35 03:50 04:05 04:20 Pulse 96 97 96 90 Resp 18 18 18 18 B/P (MAP) 122/74 125/67 114/70 119/76 Pulse Ox 96 97 93 96 O2 Delivery Room Air Room Air Room Air Room Air 10/31/16 10/31/16 10/31/16 10/31/16 04:35 04:50 05:05 05:20 Pulse 78 84 88 88 Resp 18 18 18 18 B/P (MAP) 121/77 122/77 124/73 122/78 Pulse Ox 95 95 96 95 O2 Delivery Room Air Room Air Room Air Room Air 10/31/16 10/31/16 10/31/16 10/31/16 05:35 05:50 06:05 06:20 Pulse 98 83 88 95 Resp 18 18 18 18 B/P (MAP) 120/74 116/75 130/79 123/77 Pulse Ox 95 95 95 96 O2 Delivery Room Air Room Air Room Air Room Air 10/31/16 10/31/16 10/31/16 10/31/16 06:35 06:50 07:05 07:20 Pulse 77 81 96 101 Resp 18 18 18 18 B/P (MAP) 114/74 122/71 115/74 119/72 Pulse Ox 95 96 96 96 O2 Delivery Room Air Room Air Room Air Room Air 4/2010/31/16 10/31/16 10/31/16 07:35 07:50 08:05 08:20 Temp 95.6 Pulse 93 93 78 88 Resp 18 18 18 18 B/P (MAP) 116/65 116/65 134/69 129/77 Pulse Ox 96 96 95 96 O2 Delivery Room Air Room Air Room Air Room Air 10/31/16 10/31/16 10/31/16 10/31/16 08:35 08:50 09:05 09:20 Pulse 90 90 96 96 Resp 18 18 18 18 B/P (MAP) 125/72 116/69 120/71 120/71 Pulse Ox 96 96 98 98 O2 Delivery Room Air Room Air Room Air Room Air 10/31/16 10/31/16 10/31/16 10/31/16 09:35 09:50 10:05 10:20 Pulse 85 76 81 91 Resp 18 18 18 18 B/P (MAP) 118/80 126/78 131/77 120/74 Pulse Ox 96 97 96 96 O2 Delivery Room Air Room Air Room Air Room Air 10/31/16 10/31/16 10/31/16 10/31/16 10:35 10:50 11:05 11:20 Pulse 90 102 100 97 Resp 18 18 18 18 B/P (MAP) 122/79 113/70 146/83 142/78 Pulse Ox 96 96 97 97 O2 Delivery Room Air Room Air Room Air Room Air 10/31/16 10/31/16 10/31/16 10/31/16 11:35 11:50 12:05 12:20 Temp 95.5 Pulse 110 104 87 96 Resp 18 18 18 18 B/P (MAP) 130/81 132/84 134/80 129/76 Pulse Ox 98 97 96 96 O2 Delivery Room Air Room Air Room Air Room Air 10/31/16 10/31/16 10/31/16 10/31/16 12:35 12:50 13:20 13:35 Pulse 86 93 93 95 Resp 18 18 18 18 B/P (MAP) 132/76 131/85 119/71 130/74 Pulse Ox 93 98 O2 Delivery Room Air Room Air Room Air Room Air 10/31/16 10/31/16 10/31/16 10/31/16 13:45 14:00 14:15 14:30 Pulse 93 83 80 80 Resp 18 18 18 18 B/P (MAP) 120/62 112/56 115/58 119/58 O2 Delivery Room Air Room Air Room Air Room Air 10/31/16 10/31/16 10/31/16 10/31/16 14:45 15:00 18:35 20:00 Temp 96.5 96.9 Pulse 77 82 77 83 Resp 18 18 18 17 B/P (MAP) 124/62 122/64 109/66 123/78 Pulse Ox 95 98 O2 Delivery Room Air Room Air Room Air Room Air 11/01/16 11/01/16 11/01/16 11/01/16 00:06 04:00 08:00 12:00 Temp 98.7 96.7 98.0 98.0 Pulse 80 70 74 77 Resp 17 16 18 18 B/P (MAP) 129/82 124/81 124/67 123/81 Pulse Ox 99 99 99 99 O2 Delivery Room Air Room Air Room Air Room Air 11/01/16 11/01/16 11/02/16 15:50 20:00 00:00 Temp 97.5 97.6 98.2 Pulse 78 81 71 Resp 18 17 18 B/P (MAP) 115/74 121/82 115/82 Pulse Ox 99 98 97 O2 Delivery Room Air Room Air Room Air Physical Exam: General - Alert and oriented, no apparent distress Abdomen - Soft, appropriately tender to palpation, non-distended, fundus firm at umbilicus Buttocks - right edema/fluid collection improved, less tender to palpation, no erythema Extremities - no edema, negative Kim's bilaterally Laboratory Tests Test 11/01/16 23:00 Range/Units White Blood Count 11.3 H 4.3-11.0 10^3/uL Red Blood Count 4.75 4.35-5.85 10^6/uL Hemoglobin 11.6 11.5-16.0 G/DL Hematocrit 37 35-52 % Mean Corpuscular Volume 77 L 80-99 FL Mean Corpuscular Hemoglobin 24 L 25-34 PG Mean Corpuscular Hemoglobin Concent 32 32-36 G/DL Red Cell Distribution Width 16.9 H 10.0-14.5 % Platelet Count 198 130-400 10^3/uL Mean Platelet Volume 10.8 H 7.4-10.4 FL Neutrophils (%) (Auto) 69 42-75 % Lymphocytes (%) (Auto) 20 12-44 % Monocytes (%) (Auto) 9 0-12 % Eosinophils (%) (Auto) 2 0-10 % Basophils (%) (Auto) 0 0-10 % Neutrophils # (Auto) 7.8 1.8-7.8 X 10^3 Lymphocytes # (Auto) 2.3 1.0-4.0 X 10^3 Monocytes # (Auto) 1.0 0.0-1.0 X 10^3 Eosinophils # (Auto) 0.2 0.0-0.3 10^3/uL Basophils # (Auto) 0.0 0.0-0.1 10^3/uL Assessment: 26 y/o post- day # 2, status post spontaneous vaginal delivery. Recovering well, hemodynamically stable Acute blood loss anemia (Hgb up to 11.6 yesterday however) Right buttock pain - small hematoma vs edema/fluid collection, improving Plan: Routine care. Encourage breast feeding. Encourage ambulation. No indication for intervention on right buttocks - improving. Will d/c with small supply of [employer]. Plan for discharge today, f/u with Dr. Michel as instructed Vitals - Labs Vital Signs - I&O Vital Signs Date Time Temp Pulse Resp B/P (MAP) Pulse Ox O2 Delivery O2 Flow Rate FiO2 11/02/16 00:00 98.2 71 18 115/82 97 Room Air 11/01/16 20:00 97.6 81 17 121/82 98 Room Air 11/01/16 15:50 97.5 78 18 115/74 99 Room Air 11/01/16 12:00 98.0 77 18 123/81 99 Room Air Labs Laboratory Tests 11/01/16 23:00: White Blood Count 11.3H, Red Blood Count 4.75, Hemoglobin 11.6, Hematocrit 37, Mean Corpuscular Volume 77L, Mean Corpuscular Hemoglobin 24L, Mean Corpuscular Hemoglobin Concent 32, Red Cell Distribution Width 16.9H, Platelet Count 198, Mean Platelet Volume 10.8H, Neutrophils (%) (Auto) 69, Lymphocytes (%) (Auto) 20 , Monocytes (%) (Auto) 9, Eosinophils (%) (Auto) 2, Basophils (%) (Auto) 0, Neutrophils # (Auto) 7.8, Lymphocytes # (Auto) 2.3, Monocytes # (Auto) 1.0, Eosinophils # (Auto) 0.2, Basophils # (Auto) 0.0 JIGNA FERNÁNDEZ MD Nov 02, 2016 08:27
[2016-11-02] MEDS: FERROUS SULF 325 MG (IRON) TAB PO SCH (09:02)
[2016-11-02] MEDS: DOCUSATE SODIUM 100 MG (COLACE) CAP PO SCH (09:02)
[2016-11-02] MEDS: PRENATAL VITAMIN 1 EA TAB PO SCH (09:02)
[2016-11-02 12:00] VITALS: BP 137/80
[2016-11-02 13:32] VITALS: BP 137/80
== END 2016-11-02 13:05 | disposition home or self-care (01) | DRG 775 ==
LOC: WSo 18:49 → LDRP 18:49 → WSo 19:58 → LDRP 10-31 15:25
PROVIDERS: ADMIT Obstetrics & Gynecology; ATTEND Obstetrics & Gynecology
PROC: 10E0XZZ Delivery of Products of Conception, External Approach (ICD-10-PCS; principal; 2016-10-31)
DX: O99.824 Streptococcus B carrier state complicating childbirth (principal); O99.214 Obesity complicating childbirth; E66.9 Obesity, unspecified; Z68.43 Body mass index [BMI] 50.0-59.9, adult; O99.73 Diseases of the skin and subcutaneous tissue complicating the puerperium; L76.32 Postprocedural hematoma of skin and subcutaneous tissue following other procedure; Z37.0 Single live birth; Z3A.39 39 weeks gestation of pregnancy
CPT/HCPCS: 36415; 74176; 85025; 86850; 86900; 86901; 88307; 99212

== ENCOUNTER 2017-03-30 09:05 | Emergency (ER) | payer MEDICAID ==
[~2017-03-30] VITALS: Ht 167.6 cm; Wt 140.6 kg
[~2017-03-30 09:05] MED LIST changes: +DOCU100C37 PO; +FERR-74 PO; +HYDR-3812 PO; +IBUP-1773 PO; +LEVO50TA PO
[2017-03-30] MEDS ORDERED: RT-ALBUTEROL/IPRATROPIUM 3 ML (DUONEB) VIAL INH ONE (09:45)
[2017-03-30 09:47] LABS: BASOPHILS % (AUTO) 0 % (0-10); EOSINOPHILS # (AUTO) 0.1 10^3/uL (0.0-0.3); EOSINOPHILS % (AUTO) 1 % (0-10); LYMPHOCYTES # (AUTO) 2.2 X 10^3 (1.0-4.0); LYMPHOCYTES % (AUTO) 23 % (12-44); MEAN CORPUSCULAR HEMOGLOBIN 25 PG (25-34); MEAN CORPUSCULAR HGB CONC 33 G/DL (32-36); MEAN CORPUSCULAR VOLUME 78 FL (80-99); MEAN PLATELET VOLUME 10.5 FL (7.4-10.4); MONOCYTES # (AUTO) 0.7 X 10^3 (0.0-1.0); MONOCYTES % (AUTO) 7 % (0-12); NEUTROPHILS # (AUTO) 6.8 X 10^3 (1.8-7.8); NEUTROPHILS % (AUTO) 69 % (42-75); PLATELET COUNT 291 10^3/uL (130-400); RED BLOOD COUNT 5.19 10^6/uL (4.35-5.85); RED CELL DISTRIBUTION WIDTH 14.6 % (10.0-14.5); WHITE BLOOD COUNT 9.9 10^3/uL (4.3-11.0)
[2017-03-30 10:06] LABS: ALANINE AMINOTRANSFERASE 59 U/L (0-55); ALBUMIN 3.8 GM/DL (3.2-4.5); ANION GAP 9 MMOL/L (5-14); ASPARTATE AMINO TRANSFERASE 29 U/L (5-34); BILIRUBIN,TOTAL 0.4 MG/DL (0.1-1.0); BLOOD UREA NITROGEN 13 MG/DL (7-18); BUN/CREATININE RATIO 17; CALCIUM 9.3 MG/DL (8.5-10.1); CARBON DIOXIDE 20 MMOL/L (21-32); CHLORIDE 110 MMOL/L (98-107); CREATININE SERUM 0.76 MG/DL (0.60-1.30); GFR ESTIMATED > 60; GLUCOSE 98 MG/DL (70-105); LIPASE 28 U/L (8-78); POTASSIUM 4.2 MMOL/L (3.6-5.0); SODIUM 139 MMOL/L (135-145); TOTAL PROTEIN 7.6 GM/DL (6.4-8.2)
--- NOTE | 2017-03-30 10:19 | Diagnostic Imaging Report ---
PA and lateral chest INDICATION: Chest pressure and pain. Comparison made to a CT from January 30, 2014. FINDINGS: The lungs appear clear without focal infiltrate or evidence of effusion. There is no pneumothorax. The heart and mediastinal contours are appropriate and pulmonary vascularity appears normal. There is no osseous abnormality demonstrated. IMPRESSION: 1. No radiographic evidence of an acute cardio pulmonary process. Dictated by: Dictated on workstation # [id number]
[2017-03-30] MEDS ORDERED: DEXAMETHASONE PF 10 MG/ML (DECADRON) VIAL IV STA (10:26)
[2017-03-30] MEDS ORDERED: DEXAMETHASONE 10 MG/ML (DECADRON) 1 ML VIAL ONE (10:29)
--- NOTE | 2017-03-30 10:33 | ED Cough/URI ---
General Chief Complaint: Chest Pain Stated Complaint: CP/SOB Nursing Triage Note: AMB TO ROOM WITH MALE C/O CHEST PAIN SINCE YESTERDAY. Source: patient Exam Limitations: no limitations History of Present Illness Time seen by provider: 09:30 Initial Comments Here with report of chest tightness and congestion and has been going on since yesterday and worse this morning. [place] achy all over. Did take Tylenol and ibuprofen that did not help. Presents due to the chest tightness. States that she does not have a little congestion although admits that she has had some and a mild runny nose as well. Mild cough reported. Reports that she had 3 positive home test and 2 negative home test. States that she had her tubes removed in December so she is concerned about . Timing/Duration: yesterday Severity/Quality: mild, dry cough Prior Episodes/Possible Cause: occasional episodes Associated Symptoms: chest pain/soreness (central low back pain that she describes as tightness that goes through to her back. Mild and intermittent.), cough, nasal congestion, shortness of breath Allergies and Home Medications Allergies Coded Allergies: Penicillins (Verified Allergy, Mild, 10/30/16) Sulfa (Sulfonamide Antibiotics) (Verified Allergy, Mild, 10/30/16) codeine (Verified Allergy, Mild, 10/30/16) shellfish derived (Verified Allergy, Unknown, 10/31/16) Uncoded Allergies: DARVOCET (Allergy, Mild, HIVES, 03/22/10) Home Medications Docusate Sodium 100 Mg Capsule, 100 MG PO BID, #40 Prescribed by: CATHY NICOLAS on 10/31/16 1327 Ferrous Sulfate 325 Mg Tablet, 325 MG PO DAILY, #60 Prescribed by: CATHY NICOLAS on 10/31/16 1327 Hydrocodone/Acetaminophen 1 Each Tablet, 1-2 TAB PO Q4H PRN for PAIN-MODERATE, # 20 Prescribed by: JIGNA FERNÁNDEZ on 11/02/16 0822 Ibuprofen 600 Mg Tablet, 600 MG PO Q6H, #80 Prescribed by: CATHY NICOLAS on 10/31/16 1327 Levothyroxine Sodium 50 Mcg Tablet, 50 MCG PO DAILY, (Reported) Constitutional: see HPI, No chills, No fever EENTM: see HPI, nose congestion Respiratory: cough Cardiovascular: chest pain, No edema Gastrointestinal: No abdominal pain, No nausea, No vomiting Genitourinary: no symptoms reported Musculoskeletal: no symptoms reported All Other Systems Reviewed Negative Unless Noted: Yes Past Dsfttzb-Tvdjyh-Eliomp Hx Patient Social History Alcohol Use: Denies Use Recreational Drug Use: No Smoking Status: Never a Smoker Recent Foreign Travel: No Contact w/Someone Who Travel: No Recent Infectious Disease Expo: No Recent Hopitalizations: No Immunizations Up To Date Tetanus Booster (TDap): Unknown Seasonal Allergies Seasonal Allergies: Yes Surgeries History of Surgeries: Yes (LYMPH NODE REMOVAL) Surgeries: Adenoidectomy, Tonsillectomy Respiratory History of Respiratory Disorde: No Cardiovascular History of Cardiac Disorders: Yes (TUBES REMOVED ) Neurological History of Neurological Disord: No Reproductive System Hx Reproductive Disorders: No Sexually Transmitted Disease: No HIV/AIDS: No Genitourinary History of Genitourinary Disor: No Gastrointestinal History of Gastrointestinal Di: No Musculoskeletal History of Musculoskeletal Dis: No Endocrine History of Endocrine Disorders: Yes HEENT History of HEENT Disorders: No Cancer History of Cancer: No Psychosocial History of Psychiatric Problem: No Integumentary History of Skin or Integumenta: No Blood Transfusions History of Blood Disorders: No Adverse Reaction to a Blood Tr: No Reviewed Nursing Assessment Reviewed/Agree w Nursing PMH: Yes Family Medical History Family Medial History: Atrial septal defect CERVICAL MATERNAL GRANDMA (25 YR) Cardiovascular disease 19 FATHER ([place] AT 17 YR) G8 BROTHER (STATES BROTHER HAS A "HOLE IN HIS HEART" ) PATERNAL GRANDMA (57 YR) Cervical cancer Completed stroke 19 FATHER (AGE 26 YR) Diabetes mellitus MATERNAL GRANDMA (IDDM TYPE 2) PATERNAL GRANDMA (IDDM TYPE 2) FH: lung cancer 19 MOTHER (39 YR) FHx: uterine cancer 19 MOTHER (AGE 24 YR) Hypertension 19 FATHER Kidney disease MATERNAL GRANDMA (BORN WITH 1 FUNCTIONING KIDNEY) LUNG Mitral valve prolapse 19 MOTHER Myocardial infarction 19 FATHER PATERNAL GRANDMA Neoplasm SKIN CANCER MATERNAL GRANDMA (AGE 52 YR) Thyroid disease 19 MOTHER (AGE 39 YR) UTERINE 19 MOTHER (25 YR) Physical Exam Vital Signs Vital Sign - Last 12Hours 03/30/17 09:10 Temp 98.8 Pulse 71 Resp 18 B/P (MAP) 142/96 Pulse Ox 98 O2 Delivery Room Air Capillary Refill : Less Than 3 Seconds General Appearance: WD/WN, no apparent distress HEENT: PERRL/EOMI, pharynx normal, other (mild nasal congestion with clear rhinorrhea mild to moderate erythema) Neck: full range of motion, supple Respiratory: lungs clear, normal breath sounds Cardiovascular: regular rate, rhythm, no murmur Gastrointestinal: non tender, soft Extremities: non-tender, normal inspection Neurologic/Psychiatric: alert, oriented x 3 Skin: normal color, warm/dry Progress/Results/Core Measures Results/Orders Lab Results Laboratory Tests Test 03/30/17 09:34 Range/Units White Blood Count 9.9 4.3-11.0 10^3/uL Red Blood Count 5.19 4.35-5.85 10^6/uL Hemoglobin 13.2 11.5-16.0 G/DL Hematocrit 41 35-52 % Mean Corpuscular Volume 78 L 80-99 FL Mean Corpuscular Hemoglobin 25 25-34 PG Mean Corpuscular Hemoglobin Concent 33 32-36 G/DL Red Cell Distribution Width 14.6 H 10.0-14.5 % Platelet Count 291 130-400 10^3/uL Mean Platelet Volume 10.5 H 7.4-10.4 FL Neutrophils (%) (Auto) 69 42-75 % Lymphocytes (%) (Auto) 23 12-44 % Monocytes (%) (Auto) 7 0-12 % Eosinophils (%) (Auto) 1 0-10 % Basophils (%) (Auto) 0 0-10 % Neutrophils # (Auto) 6.8 1.8-7.8 X 10^3 Lymphocytes # (Auto) 2.2 1.0-4.0 X 10^3 Monocytes # (Auto) 0.7 0.0-1.0 X 10^3 Eosinophils # (Auto) 0.1 0.0-0.3 10^3/uL Basophils # (Auto) 0.0 0.0-0.1 10^3/uL Sodium Level 139 135-145 MMOL/L Potassium Level 4.2 3.6-5.0 MMOL/L Chloride Level 110 H 98-107 MMOL/L Carbon Dioxide Level 20 L 21-32 MMOL/L Anion Gap 9 5-14 MMOL/L Blood Urea Nitrogen 13 7-18 MG/DL Creatinine 0.76 0.60-1.30 MG/DL Estimat Glomerular Filtration Rate > 60 BUN/Creatinine Ratio 17 Glucose Level 98 70-105 MG/DL Calcium Level 9.3 8.5-10.1 MG/DL Total Bilirubin 0.4 0.1-1.0 MG/DL Aspartate Amino Transf (AST/SGOT) 29 5-34 U/L Alanine Aminotransferase (ALT/SGPT) 59 H 0-55 U/L Alkaline Phosphatase 142 H 40-136 U/L Total Protein 7.6 6.4-8.2 GM/DL Albumin 3.8 3.2-4.5 GM/DL Lipase 28 8-78 U/L Serum Test, Qualitative NEGATIVE NEGATIVE My Orders Orders - JAYANT NARAYAN MD Ekg Tracing (03/30/17 09:12) Cbc With Automated Diff (03/30/17 09:40) Comprehensive Metabolic Panel (03/30/17 09:40) Hcg,Qualitative Serum (03/30/17 09:40) Lipase (03/30/17 09:40) Chest Pa/Lat (2 View) (03/30/17 09:40) Albuterol/Ipra Inhalation Soln (Duoneb I (03/30/17 09:45) Svn Sm Volume Nebulizer Rt-Rfs (03/30/17 09:40) Dexamethasone Pf Injection (Decadron Pf (03/30/17 10:26) Medications Given in ED Current Medications Medications Dose Ordered Sig/Malia Route Start Time Stop Time Status Last Admin Dose Admin Albuterol/ Ipratropium 3 ml ONCE ONCE INH 03/30/17 09:45 03/30/17 09:46 DC 03/30/17 09:55 3 ML Vital Signs/I&O Vital Sign - Last 12Hours 03/30/17 03/30/17 09:10 09:56 Temp 98.8 Pulse 71 Resp 18 B/P (MAP) 142/96 Pulse Ox 98 99 O2 Delivery Room Air Room Air Blood Pressure Mean: 111 Progress Note : Progress Note Seen and evaluated. Chest x-ray, labs, qualitative hCG serum tests, normal saline 1 L bolus, Toradol 30 mg IV ordered. Monitor patient. No acute findings. Decadron 10 mg IV for bronchitis symptoms. Discharged home with return precautions. Patient verbalize understanding instructions and agreement with plan. Diagnostic Imaging Diagonstic Imaging: Xray Plain Films/CT/US/NM/MRI: chest Comments VIA [facility]. [place], [place] NAME: REBECCA MARTINEZ J MED REC#: [id number] PT STATUS: REG ER : 1990 PHYSICIAN: JAYANT NARAYAN MD ADMIT DATE: 03/30/17/ER Draft Date of Exam:03/30/17 CHEST PA/LAT (2 VIEW) PA and lateral chest INDICATION: Chest pressure and pain. Comparison made to a CT from January 30, 2014. FINDINGS: The lungs appear clear without focal infiltrate or evidence of effusion. There is no pneumothorax. The heart and mediastinal contours are appropriate and pulmonary vascularity appears normal. There is no osseous abnormality demonstrated. IMPRESSION: 1. No radiographic evidence of an acute cardio pulmonary process. Dictated on workstation # [id number] Dict: 03/30/17 1014 Trans: 03/30/17 1018 [facility] [id number] Interpreted by: ZAIRE HOLLOWAY MD Electronically signed by: Departure Impression Impression: Primary Impression: Bronchitis Disposition: 01 HOME, SELF-CARE Condition: Stable Departure-Patient Inst. Decision time for Depature: 10:35 Referrals: CISCO LONG DO (PCP/Family) Primary Care Physician Patient Instructions: Acute Bronchitis, Adult (DC), Chest Pain (DC) Add. Discharge Instructions: All discharge instructions reviewed with patient and/or family. Voiced understanding. You may take ibuprofen 800 mg every 8 hours as needed for pain. You may take Tylenol 1000 mg every 8 hours as needed for pain. Follow-up with your DrErmias in a few days for recheck. Return for worsening, fever, vomiting, weakness, breathing problems or other concerns as needed. Drink plenty of fluids. JAYANT NARAYAN MD Mar 30, 2017 10:33
[2017-03-30 10:43] VITALS: BP 124/75
== END 2017-03-30 10:43 | disposition home or self-care (01) ==
LOC: EDUNIT# 09:05 → ER 09:07
DX: J40 Bronchitis, not specified as acute or chronic (principal); Z90.89 Acquired absence of other organs; Z82.49 Family history of ischemic heart disease and other diseases of the circulatory system; Z80.1 Family history of malignant neoplasm of trachea, bronchus and lung; Z80.49 Family history of malignant neoplasm of other genital organs
CPT/HCPCS: 36415; 71020; 80053; 83690; 84703; 85025; 93005; 94640